=== PATIENT | female | born 1950 | race American Indian/Alaskan Native ===

== ENCOUNTER 2017-05-12 22:57 | Emergency (ER) | payer MEDICARE ==
[2017-05-13] MEDS ORDERED: TETRACAINE 0.5% OU ONE (00:23)
[2017-05-13] MEDS ORDERED: FUL-GLO OP ONE (00:33)
--- NOTE | 2017-05-13 01:09 | Emergency Department Report ---
ED Eye Problem HPI - General Chief complaint: Eye Problems Stated complaint: RT EYE REDNESS Time Seen by Provider: 05/13/17 00:08 Source: patient Mode of arrival: Ambulatory Limitations: No Limitations - History of Present Illness Initial comments: 66-year-old with a past medical history previous CVA, [place], hypertension and history of alcohol abuse and elevated cholesterol presents to the hospital with complaint of right eye redness. Patient woke up this morning with a red right eye. Patient complains some mild discomfort had improved with taking over -the-counter medication. Patient denies blurry vision, discharge, fever, recent trauma or any neurologic deficits. Patient has a history of a CVA in 2015 (seen here) above the right macario which presented with diplopia and gait disturbance. Patient has since made a full recovery from these deficits after rehabilitation. Patient denies any previous eye surgery. Patient does wear glasses to read and denies contact lens use. - Related Data Previous Rx's Medication Instructions Recorded Last Taken Type Aspirin [Aspirin TAB] 325 mg PO QDAY #30 tablet 05/05/15 Unknown Rx Nicotine [Habitrol] 14 mg TD QDAY #30 patch 05/05/15 Unknown Rx Pregabalin [Lyrica] 50 mg PO BID #60 capsule 05/05/15 Unknown Rx Simvastatin [Zocor TAB] 20 mg PO QHS #30 tablet 05/05/15 Unknown Rx ALBUTEROL Inhaler [ProAir HFA 2 puff IH QID PRN #1 inhalation 08/12/15 Unknown Rx Inhaler] Doxycycline Hyclate [Doxycycline 100 mg PO Q12HR #20 tab 08/12/15 Unknown Rx Hyclate TAB] predniSONE [Deltasone] 20 mg PO QDAY #5 tab 08/12/15 Unknown Rx Polymyxin B Sulf/Trimethoprim 1 - 2 drop OD QID 7 Days 05/13/17 Unknown Rx [Polytrim Eye Drops [id number]/0.1%] Allergies Allergy/AdvReac Type Severity Reaction Status Date / Time No Known Allergies Allergy Verified 05/13/17 00:47 ED Review of Systems ROS: Stated complaint: RT EYE REDNESS Other details as noted in HPI Comment: All other systems reviewed and negative Other: Constitutional: No fevers chills Eyes: As per HPI ENT: No ear pain or throat pain Neck: Denies pain Respiratory: Denies cough wheezing shortness of breath Cardiovascular: Denies chest pain, palpitations, syncope GI: Denies abdominal pain, nausea, vomiting, diarrhea : Denies dysuria Musculoskeletal: Denies back pain Skin: Denies rash, lesions, erythema Neurologic: Denies headache, numbness, weakness Psychiatric: Denies suicidal ideation, hallucinations ED Past Medical Hx - Past Medical History Previous Medical History?: Yes Hx Hypertension: Yes Hx CVA: Yes Hx Heart Attack/AMI: Yes (silent heart attack 12/2014) Hx HIV: No Additional medical history: daily ETOH, high cholesterol - Surgical History Past Surgical History?: Yes Hx Pacemaker: No Additional Surgical History: right elbow surgury - Social History Smoking Status: Current Every Day Smoker Substance Use Type: Alcohol - Medications Home Medications: Home Medications Medication Instructions Recorded Confirmed Last Taken Type Aspirin [Aspirin TAB] 325 mg PO QDAY #30 tablet 05/05/15 Unknown Rx Nicotine [Habitrol] 14 mg TD QDAY #30 patch 05/05/15 Unknown Rx Pregabalin [Lyrica] 50 mg PO BID #60 capsule 05/05/15 Unknown Rx Simvastatin [Zocor TAB] 20 mg PO QHS #30 tablet 05/05/15 Unknown Rx ALBUTEROL Inhaler [ProAir HFA 2 puff IH QID PRN #1 inhalation 08/12/15 Unknown Rx Inhaler] Doxycycline Hyclate [Doxycycline 100 mg PO Q12HR #20 tab 08/12/15 Unknown Rx Hyclate TAB] predniSONE [Deltasone] 20 mg PO QDAY #5 tab 08/12/15 Unknown Rx Polymyxin B Sulf/Trimethoprim 1 - 2 drop OD QID 7 Days 05/13/17 Unknown Rx [Polytrim Eye Drops [id number]/0.1%] ED Physical Exam - General Limitations: No Limitations - Other Other exam information: General: No limitations, patient is alert in no acute distress Head exam: Atraumatic, normocephalic Eyes exam: Diffuse conjunctival redness right eye, no discharge, extraocular movements intact, pupils equal reactive to light consensual and direct. Visual acuity with glasses right 20/20, left eye 20/20, bilateral 20/15. No fluorescein uptake in the right eye. Right eye pressure 12, left eye pressure 13. No photophobia ENT: Moist mucous membrane, normal oropharynx Neck exam: Normal inspection, full range of motion, no meningismus nontender Respiratory exam: Clear to auscultation bilateral, no wheezes, rales, crackles Cardiovascular: Normal rate and rhythm, normal heart sounds Abdomen: Soft, nondistended, and nontender, with normal bowel sounds, no rebound, or guarding Extremity: Full range of motion normal inspection no deformity Back: Normal Inspection, full range of motion, no tenderness Neurologic: Alert, oriented x3, cranial nerves intact, no motor or sensory deficit Psychiatric: normal affect, normal mood Skin: Warm, dry, intact ED Course Vital Signs 05/12/17 23:27 Temperature 98.5 F Pulse Rate 90 Respiratory 18 Rate Blood Pressure 135/94 O2 Sat by Pulse 96 Oximetry - Reevaluation(s) Reevaluation #1: 05/13/17 01:19 pt stable, no discomfort or distress ED Medical Decision Making - Medical Decision Making Patient replaced on antibiotics for conjunctivitis but given a will be encouraged to follow-up with replenishment merchandising associate to rule out other causes of acute red eye. Patient does not appear to have a corneal abrasion or signs of symptoms of acute closed angle glaucoma - Differential Diagnosis conjunctivitis, glaucoma, coronary abrasion, scleritis Critical Care Time: No Critical care attestation.: If time is entered above; I have spent that time in minutes in the direct care of this critically ill patient, excluding procedure time. ED Disposition Clinical Impression: Conjunctivitis Disposition: TO HOME OR SELFCARE Is pt being admited?: No Does the pt Need Aspirin: No Condition: Stable Instructions: Conjunctivitis (ED) Additional Instructions: Follow up with either eye doctor provided or the eye doctor of your choice. Take the medications as prescribed Prescriptions: Polymyxin B Sulf/Trimethoprim [Polytrim Eye Drops [id number]/0.1%] 1 - 2 drop OD QID 7 Days Referrals: MONICA WHITEHEAD MD [Staff Physician] - 3-5 Days BANDAR CAMACHO MD [Staff Physician] - 3-5 Days NOHEMY HASSAN MD [Staff Physician] - 3-5 Days Time of Disposition: 01:21
[2017-05-13 01:33] VITALS: BP 115/70
== END 2017-05-13 01:32 | disposition home or self-care (01) ==
LOC: ED 22:57
DX: H10.9 Unspecified conjunctivitis (principal); I10 Essential (primary) hypertension; Z86.73 Personal history of transient ischemic attack (TIA), and cerebral infarction without residual deficits; I25.2 Old myocardial infarction; E78.00 Pure hypercholesterolemia, unspecified; F17.210 Nicotine dependence, cigarettes, uncomplicated; Z79.82 Long term (current) use of aspirin
CPT/HCPCS: 99283

== ENCOUNTER 2017-07-31 07:04 | Outpatient (CLI) | payer MEDICARE ==
--- NOTE | 2017-07-31 08:34 | Mammography Report ---
IMPLANT MAMMOGRAM: Bilateral breast imaging was done with standard and displacement technique. Parenchyma is symmetrically seen ventral to each implant. The implant contours are smooth. No suspicious findings or secondary signs of malignancy are seen. There is no significant change when compared to her prior examination in November 2014. CAD was utilized. CONCLUSION: Negative implant mammogram. RECOMMENDATION: Routine follow-up. BI-RADS CATEGORY: 1 = Negative ACR BI-RADS MAMMOGRAPHIC CODES: 0 = Needs additional imaging evaluation; 1 = Negative; 2 = Benign; 3 = Probably benign; 4 = Suspicious; 5 = Malignant; 6 = Known biopsy-proven malignancy COMMENT: 1. Dense breast tissue, i.e., adenosis, fibrocystic changes, etc., may obscure an underlying neoplasm. 2. Approximately 10% of cancers are not detected with mammography. 3. A negative mammography report should not delay biopsy if a clinically suspicious mass is present. COMMENT: Patient follow-up letters are generated in [employer].
== END 2017-07-31 07:05 | disposition home or self-care (01) ==
LOC: MAMMO 07:04
DX: Z12.31 Encounter for screening mammogram for malignant neoplasm of breast (principal); Z98.82 Breast implant status
CPT/HCPCS: 77067; G0202

== ENCOUNTER 2019-03-10 11:45 | Emergency (ER) | payer MEDICARE ==
--- NOTE | 2019-03-10 12:45 | Emergency Department Report ---
ED General Adult HPI - General Chief complaint: Upper Respiratory Infection Stated complaint: HEAD COLD Time Seen by Provider: 03/10/19 12:35 Source: patient Mode of arrival: Ambulatory Limitations: No Limitations - History of Present Illness Initial comments: Patient presents to the emergency department with chief complaint of a cough/cold for last 3 weeks. Patient denies fever but states her cough is nonproductive in nature. Patient states she has an appointment with her primary care physician on the of this month but cannot wait. Patient denies chest pain, status post, or headache. -: Gradual Severity scale (0 -10): 0 Improves with: none Worsens with: none Associated Symptoms: denies other symptoms Treatments Prior to Arrival: none - Related Data Previous Rx's Medication Instructions Recorded Last Taken Type Aspirin 325 mg PO QDAY #30 tablet 05/05/15 Unknown Rx Nicotine [Habitrol] 14 mg TD QDAY #30 patch 05/05/15 Unknown Rx Pregabalin [Lyrica] 50 mg PO BID #60 capsule 05/05/15 Unknown Rx Simvastatin (Nf) [Zocor TAB] 20 mg PO QHS #30 tablet 05/05/15 Unknown Rx ALBUTEROL Inhaler (OR & NICU) 2 puff IH QID PRN #1 inhalation 08/12/15 Unknown Rx [ProAir HFA Inhaler] Doxycycline Hyclate [Doxycycline 100 mg PO Q12HR #20 tab 08/12/15 Unknown Rx Hyclate TAB] predniSONE [Deltasone] 20 mg PO QDAY #5 tab 08/12/15 Unknown Rx Polymyxin B Sulf/Trimethoprim 1 - 2 drop OD QID 7 Days drops 05/13/17 Unknown Rx [Polytrim Eye Drops [id number]/0.1%] ALBUTEROL Inhaler (OR & NICU) 2 puff IH Q4HR PRN #1 inhalation 03/10/19 Unknown Rx [ProAir HFA Inhaler] Benzonatate [Tessalon Perles] 100 mg PO Q8HR PRN #20 capsule 03/10/19 Unknown Rx Codeine Phosphate/Guaifenesin 180 ml PO Q12HR PRN #180 liquid 03/10/19 Unknown Rx [Guaifenesin-Codeine Syrup] Doxycycline Monohydrate 100 mg PO BID #14 capsule 03/10/19 Unknown Rx Prednisone [predniSONE 10 mg 10 mg PO .TAPER #1 tab.ds.pk 03/10/19 Unknown Rx (6-Day Pack, 21 Tabs)] Allergies Allergy/AdvReac Type Severity Reaction Status Date / Time No Known Allergies Allergy Verified 03/10/19 11:46 ED Review of Systems ROS: Stated complaint: HEAD COLD Other details as noted in HPI Comment: All other systems reviewed and negative Constitutional: denies: chills, fever Eyes: denies: eye pain, eye discharge, vision change ENT: denies: ear pain, throat pain Respiratory: cough. denies: shortness of breath, wheezing Cardiovascular: denies: chest pain, palpitations Endocrine: no symptoms reported Gastrointestinal: denies: abdominal pain, nausea, diarrhea Genitourinary: denies: urgency, dysuria, discharge Musculoskeletal: denies: back pain, joint swelling, arthralgia Skin: denies: rash, lesions Neurological: denies: headache, weakness, paresthesias Psychiatric: denies: anxiety, depression Hematological/Lymphatic: denies: easy bleeding, easy bruising ED Past Medical Hx - Past Medical History Hx Hypertension: Yes Hx CVA: Yes Hx Heart Attack/AMI: Yes Hx HIV: No Additional medical history: daily ETOH, high cholesterol - Surgical History Hx Pacemaker: No Additional Surgical History: right elbow surgury - Social History Smoking Status: Current Every Day Smoker - Medications Home Medications: Home Medications Medication Instructions Recorded Confirmed Last Taken Type Aspirin 325 mg PO QDAY #30 tablet 05/05/15 Unknown Rx Nicotine [Habitrol] 14 mg TD QDAY #30 patch 05/05/15 Unknown Rx Pregabalin [Lyrica] 50 mg PO BID #60 capsule 05/05/15 Unknown Rx Simvastatin (Nf) [Zocor TAB] 20 mg PO QHS #30 tablet 05/05/15 Unknown Rx ALBUTEROL Inhaler (OR & NICU) 2 puff IH QID PRN #1 inhalation 08/12/15 Unknown Rx [ProAir HFA Inhaler] Doxycycline Hyclate [Doxycycline 100 mg PO Q12HR #20 tab 08/12/15 Unknown Rx Hyclate TAB] predniSONE [Deltasone] 20 mg PO QDAY #5 tab 08/12/15 Unknown Rx Polymyxin B Sulf/Trimethoprim 1 - 2 drop OD QID 7 Days drops 05/13/17 Unknown Rx [Polytrim Eye Drops [id number]/0.1%] ALBUTEROL Inhaler (OR & NICU) 2 puff IH Q4HR PRN #1 inhalation 03/10/19 Unknown Rx [ProAir HFA Inhaler] Benzonatate [Tessalon Perles] 100 mg PO Q8HR PRN #20 capsule 03/10/19 Unknown Rx Codeine Phosphate/Guaifenesin 180 ml PO Q12HR PRN #180 liquid 03/10/19 Unknown Rx [Guaifenesin-Codeine Syrup] Doxycycline Monohydrate 100 mg PO BID #14 capsule 03/10/19 Unknown Rx Prednisone [predniSONE 10 mg 10 mg PO .TAPER #1 tab.ds.pk 03/10/19 Unknown Rx (6-Day Pack, 21 Tabs)] ED Physical Exam - General Limitations: No Limitations General appearance: alert, in no apparent distress - Head Head exam: Present: atraumatic, normocephalic - Eye Eye exam: Present: normal appearance, PERRL, EOMI - ENT ENT exam: Present: mucous membranes moist - Neck Neck exam: Present: normal inspection - Respiratory Respiratory exam: Present: normal lung sounds bilaterally, wheezes. Absent: respiratory distress, rales - Cardiovascular Cardiovascular Exam: Present: regular rate, normal rhythm. Absent: systolic murmur, diastolic murmur, rubs, gallop - GI/Abdominal GI/Abdominal exam: Present: soft, normal bowel sounds. Absent: distended, tenderness - Extremities Exam Extremities exam: Present: normal inspection - Back Exam Back exam: Present: normal inspection - Neurological Exam Neurological exam: Present: alert, oriented X3, CN II-XII intact. Absent: motor sensory deficit - Psychiatric Psychiatric exam: Present: normal affect, normal mood - Skin Skin exam: Present: warm, dry, intact, normal color. Absent: rash ED Course Vital Signs 03/10/19 12:08 Temperature 97.8 F Pulse Rate 91 H Respiratory 16 Rate Blood Pressure 122/78 [Right] O2 Sat by Pulse 100 Oximetry ED Medical Decision Making - Medical Decision Making Discussed plan of care with patient Critical care attestation.: If time is entered above; I have spent that time in minutes in the direct care of this critically ill patient, excluding procedure time. ED Disposition Clinical Impression: Bronchitis Disposition: DC-01 TO HOME OR SELFCARE Is pt being admited?: No Does the pt Need Aspirin: No Condition: Stable Instructions: Acute Bronchitis (ED) Additional Instructions: Return if worse Prescriptions: Doxycycline Monohydrate 100 mg PO BID #14 capsule Codeine Phosphate/Guaifenesin [Guaifenesin-Codeine Syrup] 180 ml PO Q12HR PRN #180 liquid PRN Reason: pain Prednisone [predniSONE 10 mg (6-Day Pack, 21 Tabs)] 10 mg PO .TAPER #1 tab.ds.pk ALBUTEROL Inhaler (OR & NICU) [ProAir HFA Inhaler] 2 puff IH Q4HR PRN #1 inhalation PRN Reason: Shortness Of Breath Benzonatate [Tessalon Perles] 100 mg PO Q8HR PRN #20 capsule PRN Reason: Cough Referrals: [facility] [Provider Group] - 3-5 Days [facility] [Provider Group] - 3-5 Days Time of Disposition: 12:43
[2019-03-10 12:58] VITALS: BP 124/74
== END 2019-03-10 12:58 | disposition home or self-care (01) ==
LOC: ED 11:45
DX: J40 Bronchitis, not specified as acute or chronic (principal); I10 Essential (primary) hypertension; E78.00 Pure hypercholesterolemia, unspecified; F17.200 Nicotine dependence, unspecified, uncomplicated; I25.2 Old myocardial infarction; Z79.899 Other long term (current) drug therapy
CPT/HCPCS: 99282